=== PATIENT | female | born 1950 | race Caucasian/White ===

== ENCOUNTER 2016-11-20 15:00 | Inpatient (IN) | payer MEDICARE, OTHER ==
[2016-12-01] MEDS ORDERED: VANCOMYCIN HCL 1,000 MG in 0.9 % SODIUM CHLORIDE 250ML 250 ML IVPB ONE (06:00)
[2016-12-01] MEDS ORDERED: ACETAMINOPHEN 1,000 MG/100 ML BTL IV ONE (06:00)
[2016-12-01] MEDS ORDERED: BUPIVACAINE LIPOSOME 266MG/20ML VIAL IV ONE (06:00)
[2016-12-01] MEDS ORDERED: CELECOXIB 100 MG CAPSULE PO ONE (06:00)
[2016-12-01] MEDS ORDERED: BUPIVACAINE 0.5% W/EPI MPF 30 ML VIAL IVP ONE ×2 (06:00→14:00)
[2016-12-01] MEDS ORDERED: METOCLOPRAMIDE 10 MG TABLET PO ONE (06:00)
[2016-12-01] MEDS ORDERED: VANCOMYCIN HCL 1 GM VIAL IVPB ONE ×2 (06:00→14:00)
[2016-12-01] MEDS ORDERED: TRANEXAMIC ACID 1,000 MG/10 ML ML IV ONE ×2 (06:00→14:00)
[2016-12-01] MEDS ORDERED: MECLIZINE 25 MG TABLET PO ONE (06:00)
[2016-12-01] MEDS ORDERED: FAMOTIDINE 20MG TABLET PO ONE (06:00)
[2016-12-01] MEDS ORDERED: ACETAMINOPHEN 325 MG TAB PO PRN (13:28)
[2016-12-01] MEDS ORDERED: MORPHINE SULFATE 5 MG/ML PFS IVP PRN ×4 (13:28)
[2016-12-01] MEDS ORDERED: HYDROCODONE/APAP 7.5/325MG TABLET PO PRN (13:28)
[2016-12-01] MEDS ORDERED: ACETAMINOPHEN W/ CODEINE 300MG/30MG TABLET PO PRN ×2 (13:28)
[2016-12-01] MEDS ORDERED: ZOLPIDEM TARTRATE 5 MG TABLET PO PRN (13:28)
[2016-12-01] MEDS ORDERED: ONDANSETRON HCL IV 4 MG/2 ML VIAL IVP PRN (13:28)
[2016-12-01] MEDS ORDERED: ACETAMINOPHEN W/ CODEINE 300MG/60MG TABLET PO PRN ×2 (13:28)
[2016-12-01] MEDS ORDERED: HYDROCODONE/APAP 5/325MG TABLET PO PRN ×2 (13:28)
[2016-12-01] MEDS ORDERED: HYDROMORPHONE HCL 2 MG/ML VIAL IM PRN (13:28)
[2016-12-01] MEDS ORDERED: MAGNESIUM HYDROXIDE 30 ML UDC PO PRN (13:28)
[2016-12-01] MEDS ORDERED: HYDROMORPHONE HCL 1MG/ML **SYRINGE IM PRN (13:28)
[2016-12-01] MEDS ORDERED: KETOROLAC 30 MG/ML VIAL IVP PRN ×2 (13:28)
[2016-12-01] MEDS ORDERED: TRAMADOL HCL 50 MG TABLET PO PRN ×2 (13:28)
[2016-12-01] MEDS ORDERED: PROMETHAZINE HCL 12.5 MG in 0.9 % SODIUM CHLORIDE 100ML 50 ML IVPB PRN (13:28)
[2016-12-01] MEDS ORDERED: DIPHENHYDRAMINE HCL 25 MG CAPSULE PO PRN (13:28)
[2016-12-01] MEDS ORDERED: AL HYDROX/MAG HYDROX 30ML UD PO PRN (13:28)
[2016-12-01] MEDS ORDERED: NALOXONE 0.4 MG/1 ML VIAL IVP PRN (13:28)
[2016-12-01] MEDS ORDERED: BISACODYL 10 MG SUPP RC PRN (13:28)
[2016-12-01] MEDS ORDERED: METOCLOPRAMIDE HCL 10 MG/2 ML VIAL IVP PRN (13:28)
[2016-12-01 13:58] LABS: ABO GROUP O; ANTIBODY SCREEN POSITIVE (NEGATIVE); RH TYPE POSITIVE
[2016-12-01] MEDS ORDERED: SEVOFLURANE 250 ML INH ONE (14:00)
[2016-12-01] MEDS ORDERED: LIDOCAINE 2% MDV (20MG/ML) 20ML VIAL IV ONE (14:00)
[2016-12-01] MEDS ORDERED: FENTANYL PF 0.25MG/5ML AMPUL IV ONE (14:00)
[2016-12-01] MEDS ORDERED: EPHEDRINE SULFATE 50 MG/ML ML IV ONE (14:00)
[2016-12-01] MEDS ORDERED: ROCURONIUM BROMIDE 50MG/5ML VIAL IV ONE (14:00)
[2016-12-01] MEDS ORDERED: FENTANYL PF 100MCG/2ML VIAL IV ONE (14:00)
[2016-12-01] MEDS ORDERED: PROPOFOL 10 MG/ML VIAL IV ONE (14:00)
[2016-12-01] MEDS ORDERED: MIDAZOLAM HCL 2MG/2ML VIAL IV ONE (14:00)
[2016-12-01] MEDS ORDERED: HYDROMORPHONE HCL 2 MG/ML VIAL IV ONE ×2 (14:00)
[2016-12-01] MEDS ORDERED: ONDANSETRON HCL IV 4 MG/2 ML VIAL IVP ONE (14:00)
[2016-12-01] MEDS ORDERED: DEXTROSE 5 % AND 0.9 % NACL 1,000 ML IV PRN (16:00)
[2016-12-01] MEDS ORDERED: FLU VAC QS 2017-18 (INPT, 6MO+) 60MCG/0.5ML IM ONE (19:58)
[2016-12-01] MEDS ORDERED: PNEUM 13-VAL/PF 0.5 ML IM ONE (20:04)
[2016-12-01] MEDS ORDERED: PATIENT OWN MED: GABAPENTIN 300 MG PO SCH (22:00)
[2016-12-01] MEDS ORDERED: PATIENT OWN MED: LOSARTAN 50 MG PO SCH (22:00)
[2016-12-01] MEDS: HYDROCODONE/APAP 7.5/325MG TABLET PO PRN (22:56)
[2016-12-01] MEDS: VANCOMYCIN HCL 1,000 MG in 0.9 % SODIUM CHLORIDE 250ML 250 ML IVPB SCH (22:59)
[2016-12-01] MEDS: FERROUS SULFATE 325 MG TAB PO SCH (23:00)
[2016-12-01] MEDS: DOCUSATE SODIUM 100 MG CAPSULE PO SCH (23:02)
[2016-12-02] MEDS: HYDROCODONE/APAP 7.5/325MG TABLET PO PRN ×2 (03:38→09:33)
[2016-12-02 06:39] LABS: HEMOGLOBIN 9.1 gm/dl (11.6-16.0)
--- NOTE | 2016-12-02 08:12 | RADIOLOGY REPORT ---
EXAM: RIGHT HIP HISTORY: POSTOP RIGHT HIP EVALUATION. TECHNIQUE: A single AP view of the right hip was obtained. Comparison: None. FINDINGS: The patient is postop right VALERIE. The components appear in good position in the AP projection. There is probably some air in the soft tissues which is presumably postoperative in nature. IMPRESSION: POSTOP RIGHT VALERIE WITH GOOD ALIGNMENT IN THE AP PROJECTION. JOB NUMBER: [id number] MTDD
[2016-12-02] MEDS: FERROUS SULFATE 325 MG TAB PO SCH (09:33)
[2016-12-02] MEDS: DOCUSATE SODIUM 100 MG CAPSULE PO SCH (09:34)
[2016-12-02] MEDS ORDERED: CELECOXIB 100 MG CAPSULE PO SCH (10:00)
[2016-12-02] MEDS ORDERED: PATIENT OWN MED: ATENOLOL 50 MG PO SCH (10:00)
[2016-12-02] MEDS ORDERED: VITAMIN D 1000 UNIT PO SCH (10:00)
[2016-12-02] MEDS ORDERED: RIVAROXABAN 10 MG TABLET PO SCH (10:00)
--- NOTE | 2016-12-02 10:14 | Rehab Evaluation ---
Patient Information - Patient Information Diagnosis: OA right hip Ordered Treatment: PT Evaluate and Treat Status: Initial Evaluation Surgery: Yes (Right hip VALERIE) Date of Surgery: 12/01/16 Past Medical/Surgical Hx: PAST MEDICAL/SURGICAL HISTORY Past Surgical History right knee scope bilat total knees PMH - Respiratory Hx Respiratory Disorders Yes Hx of SOB Yes: exertional only PMH - Cardiovascular Hx Cardiovascular Disorders Yes Hx Hypertension Yes Exercise Tolerance Fair Comment: hyperlipidemia PMH - Neuro Hx Neurological Disorders Yes Hx of Neuromuscular Disease Yes: pinched nerve right elbow(radial)- takes Gabapentin PMH - GI Hx Gastrointestinal Disorders No PMH - Hx Genitourinary Disorders Yes Hx Kidney Stones Yes: 40 yrs ago Hx Renal Disease Yes: GFR always runs low(50-40)-never kidney disease PMH - Endocrine Hx Endocrine Disorders No PMH - Musculoskeletal Hx Musculoskeletal Disorders Yes Hx Arthritis Yes: RA PMH - Psych Hx Psychiatric Problems No PMH - Hematology/Oncology Hx Hematology/Oncology Yes Disorders Hx Blood Transfusion Reaction Yes: 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 Willing to get up since this is first time PT could get to see her. Worked through right hip exercises first with heel slides, hip abduction, ankle pumps and LAQ after sat up. Able to rehearse VALERIE precautions well then moved supine to sit with very little assist with right LE to get to edge of bed. Sit to stand with CGA with FWW then ambulated into woodward about 20 feet then stepped down three steps using rail and folded FWW with correct technique. Pivoted around and ambulated back up three steps with rail and FWW, CGA and good technique again. Ambulated down the woodward about 40 feet then back to room and into bed with very little assist again with right LE. Re-placed compressive stockings and made sure tray table close and call light. Got a diet soda for patient.) Subjective Information - Subjective Information Per Patient Objective Data - Pain Pain Present: Yes Pain Intensity: 5 Pain Scale Used: Numeric (1 - 10) (5/10) - Mental Status Patient Orientation: Oriented x3 - Visual Perception Appears within normal limits for therapeutic activities - ROM Within normal limits (except right hip is a little decreased secondary to surgery) - Strength/Tone Within normal limits (except right hip which is a little decreased secondary to surgery) - Coordination Appears within normal limits for therapeutic activities (Able to walk down and up three steps this am) - Bed Mobility Needs Assist (Only needs slight assist with right LE, able to pull self up in bed independently.) - Transfers Needs Assist (Only needed slight assist with cues and CGA to move out of bed and into bed.) - Balance Balance Sitting: Good Balance Standing: Good - Sensation Intact - Gait Detail (Able to ambulate with FWW and WBAT into woodward about 60 feet total then back to bed.) Therapy Assessment - Therapy Assessment Detail (Patient doing extremely well this am and has passed skills so can go home as soon as doctor releases her this afternoon.) Patient Education - Patient Education Teaching Topic: Equipment Use, Exercise/Activity Response: Return Demonstration Teaching Method: Demonstration, Handout Teaching Recipient: Patient Barriers To Learning: None Problem List - Problem List Physical Therapy Problem List: Detail (Some decreased mobility yet and difficulty with walking and performing stairs.) Goals - Goals Physical Therapy Goals: Patient will be independent with skills to be released to go home where will have home health PT then outpatient PT if needed. She has passed stairs and gait requirements, just needs a little more mobility out of and into bed. Prognosis - Prognosis Good (Patient doing very well and should be able to be released to go home this afternoon.) Plan - Plan Physical Therapy Plan: Continue PT bid today as needed to finalize skills to be released home.
[2016-12-02] MEDS: VANCOMYCIN HCL 1,000 MG in 0.9 % SODIUM CHLORIDE 250ML 250 ML IVPB SCH (11:17)
--- NOTE | 2016-12-02 12:02 | Rehab Evaluation ---
Patient Information - Patient Information Diagnosis: OA right hip Ordered Treatment: OT Evaluate and Treat Status: Initial Evaluation Surgery: Yes (Right hip VALERIE) Date of Surgery: 12/01/16 Past Medical/Surgical Hx: PAST MEDICAL/SURGICAL HISTORY Past Surgical History right knee scope bilat total knees PMH - Respiratory Hx Respiratory Disorders Yes Hx of SOB Yes: exertional only PMH - Cardiovascular Hx Cardiovascular Disorders Yes Hx Hypertension Yes Exercise Tolerance Fair Comment: hyperlipidemia PMH - Neuro Hx Neurological Disorders Yes Hx of Neuromuscular Disease Yes: pinched nerve right elbow(radial)- takes Gabapentin PMH - GI Hx Gastrointestinal Disorders No PMH - Hx Genitourinary Disorders Yes Hx Kidney Stones Yes: 40 yrs ago Hx Renal Disease Yes: GFR always runs low(50-40)-never kidney disease PMH - Endocrine Hx Endocrine Disorders No PMH - Musculoskeletal Hx Musculoskeletal Disorders Yes Hx Arthritis Yes: RA PMH - Psych Hx Psychiatric Problems No PMH - Hematology/Oncology Hx Hematology/Oncology Yes Disorders 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 She has 4 steps and john handrailings at the entrance. Pt has a walk in shower with 2 grab bars and usually stands to shower. She has an elevated toilet seat, no grab bars. She has a 2 wheeled walker, straight cane, recreation programmer, sock aid, and long shoe horn. She is responsible for all home mgmt, meal prep, laundry tasks - spouse will assist as needed.) Precautions: [place], Fall, Other (total hip precautions) - Time With Patient Total Time Spent With Patient (Min): 35 Treatment Procedures: Detail (OT eval low complexity) Subjective Information - Subjective Information Per Patient Objective Data - Pain Pain Present: Yes (05/23 right hip pain) - Mental Status Patient Orientation: Oriented x3 - Visual Perception Appears within normal limits for therapeutic activities - ROM Within normal limits (John UE AROM WNL) - Strength/Tone Within normal limits (John UE MMT WNL) - Coordination Appears within normal limits for therapeutic activities - Bed Mobility Independent (Ind with supine to sit) - Transfers Independent (Ind with sit to stand from EOB and raised commode chair.) - Balance Balance Sitting: Good Balance Standing: Good - Sensation Intact - Gait Detail (Pt amb. to bathroom with 2 wheeled walker Anastasiia.) - ADL's/IADL's Detail (Pt toileted Indly. She reports she has all adaptive equipment for LE dressing and her spouse will assist if needed. She does not feel she needs to perform LE dressing at this time.) Therapy Assessment - Therapy Assessment Detail (Pt has all appropriate adaptive equipment and is Ind with LE dressing per her report. Pt Ind with functional mobility needed for Ind with self cares. ) Problem List - Problem List Physical Therapy Problem List: Detail (Some decreased mobility yet and difficulty with walking and performing stairs.) Occupational Therapy Problem List: Detail (No OT problems identified.) Goals - Goals Physical Therapy Goals: Patient will be independent with skills to be released to go home where will have home health PT then outpatient PT if needed. She has passed stairs and gait requirements, just needs a little more mobility out of and into bed. Occupational Therapy Goals: No IP OT goals identified. Prognosis - Prognosis Good Plan - Plan Physical Therapy Plan: Continue PT bid today as needed to finalize skills to be released home. Occupational Therapy Plan: No further IP OT recommended. Thank you for this referral.
--- NOTE | 2016-12-02 12:45 | Consult ---
Consult Order Detail - Reason for Consult Consult Date: 12/02/16 Consult Order Detail: Hypertension - Chief Complaint Chief Complaint: RIGHT HIP ARTHROSIS HPI Consult - History of Present Illness Admitting Diagnosis: Chronic osteoarthritis of right hip s/p athroplasty History of Present Illness: Mrs. Bolanos is a 66 y/o female admitted after having total hip athroplasty yesterday. The patient has chronic medical conditions which at the moment appear to stable. A medicine consult was placed to review and manage these chronic conditions which in include polyarticular osteoarthritis, Rheumatoid athririts cirrently without any acute manifestations, hypertension and hyperlipidemia. On evaluation this morning the patient has no new complaint apart from leg/hip pain post-operatively. ROS Reviewed: No additional complaints except as noted below Constitutional: Reports: As per HPI. Denies: Chills, Fever, Malaise, Night sweats, Weakness, Weight change Past Medical History - SOCIAL HISTORY Smoking Status: Never smoker Alcohol Use: None Drug Use: None - RESPIRATORY Hx Respiratory Disorders: Yes - CARDIOVASCULAR Hx Cardio Disorders: Yes Hx Hypertension: Yes - NEURO Hx Neuro Disorders: Yes Hx Neuropathy: Yes (right radial distribution ) Hx of Neuromuscular Disease: Yes (pinched nerve right elbow(radial)- takes Gabapentin) - GI Hx GI Disorders: No - Hx Genitourinary Disorders: Yes Hx Kidney Stones: Yes (40 yrs ago) Hx Renal Disease: Yes (GFR always runs low(50-40)-never kidney disease) - ENDOCRINE Hx Endocrine Disorders: No - MUSCULOSKELETAL Hx Musculoskeletal Disorders: Yes Hx Arthritis: Yes (RA) - PSYCH Hx Psych Problems: No - HEMATOLOGY/ONCOLOGY Hx Hematology/Oncology Disorders: Yes Hx Blood Transfusions: Yes Hx Blood Transfusion Reaction: Yes (after 2nd total knee- 6 yrs ago--"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") Family Medical History Any Significant Family History?: Yes Hx Cancer: Father *Cancer Comment: lung CA w mets to bone Hx Heart Disease: Mother Hx Stroke: Mother H&P Meds - Home Medications and Allergies Allergies Allergy/AdvReac Type Severity Reaction Status Date / Time JO Inhibitors Allergy Intermediate RESPIRATORY Verified 11/20/16 14:35 IRRITATION NSAIDS (Non-Steroidal AdvReac Intermediate decreases Verified 11/20/16 14:35 Anti-Inflamma renal function (GFR) Physical Exam - Vital Signs Vital Signs: Vital Signs - Last 24 Hrs Temp Pulse Pulse Resp BP Pulse Ox 12/02/16 09:00 18 12/02/16 04:01 98.6 F 86 18 100/50 98 12/02/16 00:14 98.4 F 74 16 117/53 95 12/01/16 21:50 75 20 100 12/01/16 21:30 97.8 F 62 16 120/59 100 12/01/16 21:00 74 16 12/01/16 20:26 97.4 F L 67 16 123/56 99 12/01/16 19:28 97.4 F L 57 L 12 107/60 100 12/01/16 19:01 59 L 18 122/55 100 - General General Appearance: Alert, Oriented x3, Cooperative Limitations: No limitations - Head Head exam: Atraumatic, Normocephalic - Eye Eye exam: Normal appearance, PERRL, Conjunctival injection - ENT ENT exam: Normal exam Nasal Exam: Normal inspection - Neck Neck exam: Normal inspection - Respiratory Respiratory exam: Normal lung sounds bilaterally - Cardiovascular Cardiovascular Exam: Regular rate, Normal rhythm, Normal heart sounds - GI/Abdominal GI/Abdominal exam: Soft, Normal bowel sounds - Rectal Rectal exam: Deferred - exam: Deferred - Extremities Extremities exam: Normal inspection, Other (pt wearing post-op compression stalkings ) - Neurological Neurological exam: Alert, Altered, CN II-XII intact - Psychiatric Psychiatric exam: Normal affect, Normal mood - Skin Skin exam: Dry, Intact, Normal color, Warm Results - Labs Result Diagrams: 12/02/16 06:20 Labs Last 24 Hours: Laboratory Results - last 24 hr 12/01/16 12/02/16 12:20 06:20 Hgb 9.1 L Hct 30.0 L ABO Group O Rh Factor Positive Antibody Screen Positive Assessment and Plan - Assessment and Plan (1) Hypertension Plan: - last BP 100/50 - on home dose of Cozaar 50 mg PO QD w/ holding parameters Current Visit: Yes Status: Chronic Qualifiers: Hypertension type: essential hypertension Qualified Code(s): I10 - Essential (primary) hypertension Base Code: I10 - ESSENTIAL (PRIMARY) HYPERTENSION (2) Rheumatoid arthritis Plan: - patient currently stable w/o complaint of any acute manifestations. - cont DMARD - leflunomide 10mg QD as prescribed. Current Visit: Yes Status: Acute Base Code: M06.9 - RHEUMATOID ARTHRITIS, UNSPECIFIED (3) Generalized osteoarthrosis, involving multiple sites Plan: - pt has had previous surgeries to bilateral knees and left hip. - present admission for right hip procedure. - pain control as prescribed per surgery. Ambulation w/ assistance - PT/OT and incentive spirometry at bedside. - anticoagulation w/ Xarelto QD Current Visit: Yes Status: Chronic Base Code: M15.9 - POLYOSTEOARTHRITIS, UNSPECIFIED (4) Radial nerve entrapment Current Visit: Yes Status: Chronic Base Code: G56.30 - LESION OF RADIAL NERVE, UNSPECIFIED UPPER LIMB - Disposition Disposition: The patient' chronic issues are well controlled and anticipated D/C is today as per surgery. No further input or management required from medicine.
--- NOTE | 2016-12-02 14:18 | Physical Therapy Tx Note ---
Physical Therapy Tx Note - Treatment Note Tolerated: Other Total Time Spent With Patient: 5 Physical Therapy Tx Note: Detail (Patient refused treatment this afternoon, wants to save energy for going home today and has been up to the bathroom several times, sat up for lunch. Patient feels she has been active enough and did not want to walk again.) Physical Therapy Problem List: Detail (Some decreased mobility yet and difficulty with walking and performing stairs.) Physical Therapy Goals: Patient will be independent with skills to be released to go home where will have home health PT then outpatient PT if needed. She has passed stairs and gait requirements, just needs a little more mobility out of and into bed. Prognosis: Good (Patient has been working with nursing getting into and out of bed so has accomplished goals. Passed all skills for discharge home.) Physical Therapy Plan: Continue PT bid today as needed to finalize skills to be released home.
--- NOTE | 2016-12-03 16:20 | Operative Note ---
DATE OF SURGERY: PREOPERATIVE DIAGNOSIS: End-stage right hip arthrosis. POSTOPERATIVE DIAGNOSIS: End-stage right hip arthrosis. OPERATION: Right total hip arthroplasty. Surgeon: Donato Sanabria MD Anesthesia: Spinal, Anesthesia Provider: PIO Kuo. COMPLICATIONS: None. Blood Loss: 400 mL OPERATIVE FINDINGS: [id number] hip arthrosis. COMPONENTS PLACED: A 2 g vancomycin cement D[employer] Synergy cemented total hip arthroplasty system, stem size 14 stem collared high offset with a 32 plus 8 mm femoral head component Oxinium, a 52 mm acetabular shell with 1 acetabular screw, 2 screw caps, centrally-threaded screw cap, and a 35-degree highly cross-linked polyethylene liner. Indication: This is a 66-year-old female who is well known to me. She is status post left hip arthroplasty done years ago, had bilateral knee replacements, now scheduled for right. She is morbidly obese. I explained all risks and benefits in detail for the diagnosis and procedure including but not limited to infection, nerve injury, vessel injury, persistent pain, stiffness, numbness, tingling in her hip, periprosthetic fracture, need for resection arthroplasty if components are infected or loosen, blood clot, limb length discrepancy, and need for further procedures. All her questions were answered. The course was outlined. She agreed to proceed. PROCEDURE: The patient was brought to the OR and placed in the left lateral decubitus position. The right hip and lower extremity were prepped and draped in sterile fashion. Prepped using Chloraprep and draped. An intraoperative timeout was performed. Next, a posterior approach was performed on the hip. Infiltrated with 0.5% Marcaine with epinephrine. Skin and subcutaneous dissected down and massive subcutaneous fat layers were dissected down to the gluteal fascia. Gluteal fascia split longitudinally. The subgluteal plane was bluntly dissected. Identified the short external rotators, the sciatic nerve. Care to protect at all times. Took out the short external rotators. Next, incised the capsule, released the capsule, and dislocated the femoral head. The femoral head had a moderate amount of arthrosis. Resected the femoral head about 1.5 cm over the lesser trochanter. Inserted the box osteotome, inserted the reamer by hand, working in 1 mm increments with power up to a size 14. We stopped there, broached to an 11. Calcar plane to a 12 to a 13 to a 14, stopped there and good fit. Next, attention turned to the acetabulum. Placed inferior acetabular retractor and released capsule anteriorly. Placed a retractor anteriorly. Retracted the proximal femur. Had good exposure of the acetabulum. Resected some of the capsule and irrigated around the periphery. Next, we started reaming by hand working in 1 mm increments up to a size 51 mm reamer in 45 degrees inclination and 20 degrees anteversion. Stopped there, then trialed the size 52 and had a good fit and it was flush medially. Next we irrigated copiously. Changed gloves. Impacted down the real 3-hole acetabular Reflection acetabular shell component with down medial using the helicopter guide and then drilled a posterior central superior quadrant screw hole, inserted that screw. It was a 45 mm, had excellent purchase. Capped the other 2 screws, placed trial, screw holes, placed a trial liner and did a trial reduction. Best combination range of motion, stability, and leg lengths with a +8 mm femoral head component. This allowed for good abductor tension, symmetric left lengths, flexion to 90 and rotation to 80 before the hip dislocates. Good stability with extension and external and internal rotation. Next, we removed all trial components, irrigated the acetabulum copiously, placed a central-threaded screw cap and inserted the real liner with a 35-degree champagne in posterior superior quadrant. Packed that down, verified it was secure. Next, irrigated the femoral canal copiously. Placed a cement restrictor distally, injected the cement with 3rd generation cement technique. Removed the suction catheter. Then inserted the real stem with the collar, the calcar in 15 degrees of anteversion with a centralizer already in place and held it there until cement hardened. Next, cleaned and dried the trunnion, impacted down the real femoral head component, re-reduced the hip. Found the range of motion to be the same. Leg lengths were equal. Next, extensive amount of closure was performed, multiple layers. First we closed the gluteal fascia running #2 Quill. We also used [id number] #2 Vicryl. Closed the gluteal fascia securely. Next, we closed the subcutaneous fatty layer which was multiple inches thick with 4 layers; 3 of #2 Vicryl and then 2-0 Vicryl and then we closed the skin with a zip line device. We previously injected the wound subcutaneous muscle with 0.5% Marcaine with epinephrine, tranexamic acid and Exparel mixture. Sterile dressing applied. Postop x-ray revealed good alignment and orientation of components. The patient tolerated the procedure well. No intraoperative complications. All sponge and needle counts correct. Recovery room stable. Can be discharged to the floor and will be discharged home tomorrow. CHRISTIANO
== END 2016-12-02 15:20 | disposition home health service (06) | DRG 470 ==
LOC: MEDSURG 12-01 12:05
PROVIDERS: ADMIT Orthopaedic Surgery; ATTEND Orthopaedic Surgery
PROC: 0SR9049 Replacement of Right Hip Joint with Ceramic on Polyethylene Synthetic Substitute, Cemented, Open Approach (ICD-10-PCS; principal; 2016-12-01 14:30)
DX: M16.11 Unilateral primary osteoarthritis, right hip (principal); M06.9 Rheumatoid arthritis, unspecified; I10 Essential (primary) hypertension
CPT/HCPCS: 85014; 85018; 86850; 86900; 86901; 90686; 94760; 97165; J2405; J7050